=== PATIENT | male | born 1965 | race African-American/Black ===

== ENCOUNTER 2019-03-09 20:00 | Emergency (ER) | payer SELFPAY ==
[~2019-03-09] VITALS: Ht 172.7 cm; Wt 78.0 kg
[2019-03-09 20:02] VITALS: BP 100/60
== END 2019-03-09 22:18 | disposition left against medical advice (07) ==
LOC: ER 20:00
DX: Z53.21 Procedure and treatment not carried out due to patient leaving prior to being seen by health care provider (principal)

== ENCOUNTER 2021-07-20 11:39 | Emergency (ER) | payer MEDICAID, OTHER ==
[~2021-07-20] VITALS: Ht 177.8 cm; Wt 45.0 kg
[2021-07-20] MEDS ORDERED: IBUP-2029 MT (13:21)
[2021-07-20] MEDS ORDERED: CEPH500C2 MT (13:21)
[2021-07-20] MEDS ORDERED: IBUPROFEN 600MG TABLET PO ONE (13:30)
[2021-07-20 13:38] VITALS: BP 117/72
== END 2021-07-20 13:50 | disposition home or self-care (01) ==
LOC: ER 11:39
DX: L76.82 Other postprocedural complications of skin and subcutaneous tissue (principal); L08.89 Other specified local infections of the skin and subcutaneous tissue; Z85.9 Personal history of malignant neoplasm, unspecified; Y83.8 Other surgical procedures as the cause of abnormal reaction of the patient, or of later complication, without mention of misadventure at the time of the procedure; Y92.018 Other place in single-family (private) house as the place of occurrence of the external cause
CPT/HCPCS: 99283

== ENCOUNTER 2024-01-03 13:01 | Emergency (ER) | payer OTHER ==
[~2024-01-03] VITALS: Ht 154.9 cm; Wt 54.1 kg
[~2024-01-03 13:01] MED LIST: CEPH500C2 MT; IBUP-2029 MT
[2024-01-03 13:18] VITALS: PULSE 64; RESP 22; O2SAT 98
[2024-01-03 14:01] LABS: DIFFERENTIAL COMMENT 0; EOSINOPHILS % 0.3 % (0.0-5.0); HEMATOCRIT. 35.9 % (42.0-52.0); HEMOGLOBIN. 11.4 g/dL (14.0-18.0); LYMPHOCYTES % 24.8 % (20.0-50.0); MEAN CORPUSCULAR HGB CONC 31.8 g/dL (31.0-37.0); MEAN CORPUSCULAR VOLUME 78.7 fL (80.0-94.0); MONOCYTES % 9.6 % (2.0-8.0); NEUTROPHILS % 64.3 % (40.0-76.0); PLATELET 292 x1000/uL (130-400); RED BLOOD CELL COUNT 4.56 mill/uL (4.7-6.1); RED CELL DISTRIBUTION WIDTH 17.7 % (11.6-14.6); WHITE BLOOD COUNT 4.5 x1000/uL (4.5-11.0)
[2024-01-03 14:12] LABS: PROTHROMBIN TIME 10.9 sec (9.6-11.0)
[2024-01-03 14:24] LABS: ALANINE AMINOTRANSFERASE 12 IU/L (10-49); ALBUMIN 4.3 g/dL (3.2-4.8); ASPARTATE AMINOTRANSFERASE 20 IU/L (<34); BILIRUBIN TOTAL 0.2 mg/dL (0.1-1.0); CALCIUM 8.9 mg/dL (8.7-10.4); CARBON DIOXIDE 28 mEq/L (21-32); CHLORIDE 104 mEq/L (98-107); CREATININE 2.3 mg/dL (0.6-1.3); GLUCOSE 86 mg/dL (70-105); POTASSIUM 4.9 mEq/L (3.5-5.1); PROTEIN TOTAL 7.4 g/dL (6.0-8.3); SODIUM 136 mEq/L (136-145); TROPONIN I HIGH SENSITIVITY 11 ng/L (3.0-53); UREA NITROGEN BLOOD 24 mg/dL (9-23)
[2024-01-03 18:01] LABS: TROPONIN I HIGH SENSITIVITY 13 ng/L (3.0-53)
[2024-01-03 19:29] VITALS: BP 124/92
== END 2024-01-03 19:31 | disposition home or self-care (01) ==
LOC: ER 13:01
DX: R07.89 Other chest pain (principal); N28.9 Disorder of kidney and ureter, unspecified
CPT/HCPCS: 36415; 71045; 80053; 84484; 85025; 93005; 99285